=== PATIENT | female | born 1930 | race Caucasian/White ===

== ENCOUNTER 2017-04-06 09:45 | Inpatient (IN) | payer MEDICARE, OTHER ==
[~2017-04-06] VITALS: Ht 157.5 cm; Wt 42.2 kg
[2017-04-06] VITALS (7 sets, daily range): BP systolic 127–137; BP diastolic 64–92; PULSE 69–75; RESP 16–20; TEMP 98.5; Ht 157.5 cm; Wt 42.2 kg
[~2017-04-06 09:45] MED LIST: ALPR0.5T6 PO; AMLO2.5T2 PO; ASPI-664 PO; ATOR20TA38 PO; CHOL2000 PO; CLOP75TA27 PO; DOCU-144 PO; ESOM40CA PO; FAMO-96 PO; GABA100C14 PO; IBUP400T22 PO; LINA290C PO; METO5TAB58 PO; MIRT30TA5 PO; POLY17PO3 PO; TRAM-40 PO; TRAM50TA2 PO
--- NOTE | 2017-04-06 10:41 | RADRPT ---
PROCEDURE: XR Chest. CLINICAL INDICATION: Chest pain TECHNIQUE: Frontal chest x-ray was obtained. COMPARISON: Chest x-ray November 05, 2014 FINDINGS: Heart is not enlarged. Mediastinum is not widened. No hilar masses seen. Lungs are clear of any infi ltrates. There is no effusion or pneumothorax. IMPRESSION: No evidence for active cardiopulmonary disease. .August Maldonado MD, MD Date Time Electronically viewed and signed by .August Maldonado MD, on 04/06/2017 10:41 .A/
[2017-04-06 10:45] LABS: BASOPHILS % 0.7 % (0.0-2.0); EOSINOPHILS # 0.2 10^3/ul (0.0-0.5); EOSINOPHILS % 2.4 % (0.0-7.0); HEMATOCRIT 39.8 % (37.0-47.0); HEMOGLOBIN 13.5 g/dl (12.0-16.0); LYMPHOCYTES # 1.1 10^3/ul (0.8-2.9); MEAN CORPUSCULAR HEMOGLOBIN 32.2 pg (29.0-33.0); MEAN CORPUSCULAR HGB CONC 33.9 g/dl (32.0-37.0); MEAN PLATELET VOLUME 10.2 fl (7.4-10.4); MONOCYTE # 0.4 10^3/ul (0.3-0.9); MONOCYTES % 6.5 % (0.0-11.0); NEUTROPHIL # 4.4 10^3/ul (1.6-7.5); NEUTROPHILS % 72.1 % (39.0-77.0); PLATELET COUNT 221 10^3/UL (140-415); RED BLOOD COUNT 4.19 10^6/ul (4.20-5.40); RED CELL DISTRIBUTION WIDTH 13.2 % (11.5-14.5); WHITE BLOOD COUNT 6.2 10^3/ul (4.8-10.8)
[2017-04-06 10:53] LABS: PROTIME 13.2 Sec (12.2-14.2)
[2017-04-06 10:54] LABS: PARTIAL THROMBOPLASTIN TIME 29.8 Sec (25.0-35.0)
[2017-04-06 10:55] LABS: ANION GAP 13 (8-16); BLOOD UREA NITROGEN 10 mg/dl (7-20); CALCIUM 9.9 mg/dl (8.4-10.2); CARBON DIOXIDE 29 mmol/L (21-31); CHLORIDE 99 mmol/L (97-110); CREATININE 0.64 mg/dl (0.44-1.00); GLUCOSE 109 mg/dl (70-220); POTASSIUM 4.5 mmol/L (3.5-5.1); SODIUM 136 mmol/L (135-144)
[2017-04-06 11:08] LABS: TROPONIN-I < 0.012 ng/ml (0.00-0.12)
[2017-04-06 11:34] LABS: ADD UMIC NO; UR ASCORBIC ACID NEGATIVE (NEGATIVE); UR BILIRUBIN (Dip) NEGATIVE (NEGATIVE); UR BLOOD (Dip) NEGATIVE (NEGATIVE); UR CLARITY CLEAR (CLEAR); UR COLOR STRAW (YELLOW); UR GLUCOSE (Dip) NEGATIVE (NEGATIVE); UR KETONES (Dip) NEGATIVE (NEGATIVE); UR LEUKOCYTE ESTERASE (Dip) NEGATIVE Leu/ul (NEGATIVE); UR NITRITE (Dip) NEGATIVE (NEGATIVE); UR SPECIFIC GRAVITY (Dip) 1.003 (1.003-1.030); UR TOTAL PROTEIN (Dip) NEGATIVE (NEGATIVE); UR UROBILINOGEN (Dip) NEGATIVE (NEGATIVE)
[2017-04-06 11:43] LABS: BENZODIAZEPINES Negative (NEGATIVE)
--- NOTE | 2017-04-06 11:43 | RADRPT ---
PROCEDURE: CT Brain without contrast. CLINICAL INDICATION: Stroke TECHNIQUE: A CT of the brain was performed on a multidetector CT scanner utilizing axial imaging f rom the skull base through the vertex without IV contrast. Multiplanar reformatted images were made . Images were reviewed on a PACS workstation. The CTDIvol is 45 mGy and the DLP is 630 mGycm. One or more of the following dose reduction techniques were utilized: 1.) Automated exposure control 2.) Adjustment of the mA +/- kV according to patient's size 3.) Use of iterative reconstruction technique. COMPARISON: Head CT November 05, 2014 FINDINGS: There is moderate age appropriate diffuse cerebral volume loss with sulcal and ventricular dilatatio n. No discrete extra-axial fluid collection or masses present. The ventricles are in the midline and of normal contour and configuration. Noted is an old left basal ganglia infarct which extends into the subependymal white matter of the left frontal lobe. There is periventricular white matter diseas e in both cerebral hemispheres. No associated mass effect is present. There is preservation of tarun l duarte-white discrimination. No intracranial hemorrhage is seen. There is normal aeration of the visualized paranasal sinuses. IMPRESSION: Age-appropriate atrophy. 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 No intracranial hemorrhage or mass. .August Maldonado MD, MD Date Time Electronically viewed and signed by .August Maldonado MD, on 04/06/2017 11:43 .A/
[2017-04-06 12:03] LABS: BARBITURATES Negative (NEGATIVE); CANNABINOIDS Negative (NEGATIVE); COCAINE Negative (NEGATIVE); OPIATES Negative (NEGATIVE)
[2017-04-06] MEDS ORDERED: ACETAMINOPHEN 325 MG TAB PO PRN (12:30)
[2017-04-06] MEDS ORDERED: ONDANSETRON 4 MG INJ IV PRN (12:30)
[2017-04-06] MEDS ORDERED: ASPIRIN 325 MG TAB PO ONE (12:30)
--- NOTE | 2017-04-06 12:31 | ERD ---
ER Documentation Chief Complaint Chief Complaint Complains of left sided weakness and chest pain HPI Patient is an 86-year-old female with hypertension and previous stroke who presents with 2 days of left-sided arm weakness. The family and the patient are worried about another stroke. 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 She also is having chest pain today which is in the midsternal area and does not radiate. She feels weak. She has had no fevers. Upon review of old medical records this is the patient's fourth visit to the ER since 2014. ROS All systems reviewed and are negative except as per history of present illness. Medications Home Meds Active Scripts Docusate Sodium* (Colace*) 100 Mg Cap, 100 MG PO Q12H for 30 Days Prov:UQINCY STEWARD 11/09/14 Clopidogrel Bisulfate (Clopidogrel) 75 Mg Tab, 75 MG PO DAILY for 30 Days Prov:QUINCY STEWARD 11/09/14 Reported Medications Cholecalciferol* (Vitamin D3*) 2,000 Unit Cap, 2000 UNIT PO DAILY, CAP 10/25/15 Alprazolam* (Alprazolam*) 0.5 Mg Tablet, 0.5 MG PO DAILY Y for ANXIETY, TAB 10/25/15 Linaclotide (LINZESS) 290 Mcg Capsule, 290 MCG PO DAILY, #30 CAP 10/25/15 Aspirin* (Aspirin* EC) 81 Mg Tablet.dr, 81 MG PO DAILY, TAB 10/25/15 Tramadol Hcl* (Ultram*) 50 Mg Tablet, 50 MG PO DAILY Y for PAIN, TAB 10/25/15 Metoclopramide* (Reglan*) 5 Mg Tablet, 5 MG PO AC MEALS, TAB 10/25/15 Atorvastatin Calcium* (Atorvastatin Calcium*) 20 Mg Tablet, 20 MG PO QHS, #30 TAB 10/25/15 Famotidine* (Pepcid*) 20 Mg Tablet, 20 MG PO DAILY, TAB 11/10/14 Discontinued Reported Medications Polyethylene Glycol* (Polyethylene Glycol*) 17 Gm Powd.pack, 17 GM PO DAILY, # 30 PACKET 10/25/15 Esomeprazole Mag Trihydrate (Nexium) 40 Mg Capsule.dr, 40 MG PO DAILY, #30 CAP 10/25/15 Gabapentin* (Gabapentin*) 100 Mg Capsule, 100 MG PO DAILY, #90 CAP 10/25/15 Mirtazapine* (Mirtazapine*) 30 Mg Tablet, 30 MG PO DAILY, TAB 10/25/15 Ibuprofen* (Ibuprofen*) 400 Mg Tablet, 400 MG PO Q6H Y for PAIN, TAB 11/10/14 Discontinued Scripts Tramadol HCl (Tramadol HCl) 50 Mg Tablet, 50 MG PO Q6 Y for PAIN, #15 TAB Prov:CHANTELLE CONRAD MD 10/25/15 Amlodipine Besylate* (Norvasc*) 2.5 Mg Tab, 2.5 MG PO DAILY for 30 Days Prov:QUINCY STEWARD 11/09/14 Allergies Allergies: Coded Allergies: No Known Allergy (Unverified , 04/06/17) PMhx/Soc History of Surgery: Yes (hysterectomy ) Anesthesia Reaction: No Hx Neurological Disorder: Yes (CVA) Hx Respiratory Disorders: No Hx Cardiac Disorders: Yes (HTN) Hx Psychiatric Problems: No Hx Miscellaneous Medical Probl: Yes (gerd, anxiety ) Hx Alcohol Use: No Hx Substance Use: No Hx Tobacco Use: No Smoking Status: Never smoker FmHx Family History: No diabetes Physical Exam Vitals Vital Signs Date Time Temp Pulse Resp B/P Pulse Ox O2 Delivery O2 Flow Rate FiO2 04/06/17 10:23 64 22 120/88 100 Room Air 04/06/17 09:50 98.5 72 20 120/66 98 Physical Exam Const: No acute distress Head: Atraumatic Eyes: Normal Conjunctiva ENT: Normal External Ears, Nose and Mouth. Neck: Full range of motion..~ No meningismus. Resp: Clear to auscultation bilaterally Cardio: Regular rate and rhythm, no murmurs Abd: Soft, non tender, non distended. Normal bowel sounds Skin: No petechiae or rashes Back: No midline or flank tenderness Ext: No cyanosis, or edema Neur: Awake and alert, right-sided flaccid paralysis from previous stroke, left-sided track helper strength weakness on the left upper extremity, cranial nerves II through XII are intact without facial droop, no slurred speech Psych: Normal Mood and Affect Result Diagram: 04/06/17 1009 04/06/17 1009 Results 24 hrs Laboratory Tests Test 04/06/17 10:09 04/06/17 11:12 White Blood Count 6.210^3/ul Red Blood Count 4.1910^6/ul Hemoglobin 13.5g/dl Hematocrit 39.8% Mean Corpuscular Volume 95.0fl Mean Corpuscular Hemoglobin 32.2pg Mean Corpuscular Hemoglobin Concent 33.9g/dl Red Cell Distribution Width 13.2% Platelet Count 23633^3/UL Mean Platelet Volume 10.2fl Neutrophils % 72.1% Lymphocytes % 18.0% Monocytes % 6.5% Eosinophils % 2.4% Basophils % 0.7% Nucleated Red Blood Cells % 0.0/100WBC Neutrophils # 4.410^3/ul Lymphocytes # 1.110^3/ul Monocytes # 0.410^3/ul Eosinophils # 0.210^3/ul Basophils # 0.010^3/ul Nucleated Red Blood Cells # 0.010^3/ul Prothrombin Time 13.2Sec Prothrombin Time Ratio 1.0 INR International Normalized Ratio 1.00 Activated Partial Thromboplast Time 29.8Sec Sodium Level 136mmol/L Potassium Level 4.5mmol/L Chloride Level 99mmol/L Carbon Dioxide Level 29mmol/L Anion Gap 13 Blood Urea Nitrogen 10mg/dl Creatinine 0.64mg/dl Glucose Level 109mg/dl Hemoglobin A1c 5.3% Calcium Level 9.9mg/dl Troponin I < 0.012ng/ml Urine Color STRAW Urine Clarity CLEAR Urine pH 6.0 Urine Specific [place] 1.003 Urine Ketones NEGATIVEmg/dL Urine Nitrite NEGATIVEmg/dL Urine Bilirubin NEGATIVEmg/dL Urine Urobilinogen NEGATIVEmg/dL Urine Leukocyte Esterase NEGATIVELeu/ul Urine Hemoglobin NEGATIVEmg/dL Urine Glucose NEGATIVEmg/dL Urine Total Protein NEGATIVEmg/dl Urine Opiates Screen Negative Urine Barbiturates Negative Urine Amphetamines Screen Negative Urine Benzodiazepines Screen Negative Urine Cocaine Screen Negative Urine Cannabinoids Negative Current Medications Medications (Trade) Dose Ordered Sig/Jose Manuel Route PRN Reason Start Time Stop Time Status Last Admin Dose Admin Ondansetron HCl (Zofran Inj) 4 mg ER BRIDGE PRN IV NAUSEA AND/OR VOMITING 04/06/17 12:30 04/07/17 12:29 Acetaminophen (Tylenol Tab) 650 mg ER BRIDGE PRN PO MILD PAIN/FEVER 04/06/17 12:30 04/07/17 12:29 Aspirin (Aspirin) 325 mg ONCE ONCE PO 04/06/17 12:30 04/06/17 12:31 DC Procedures/MDM EKG read by me: Rate/Rhythm: Regular rate and rhythm at a rate of 77 Intervals: Normal Impression: No evidence of ischemia or arrhythmia CT brain negative for bleed per radiology. Chest x-ray negative per radiology. Patient is an 86-year-old female with previous stroke who presents with left arm weakness. I believe this may be another stroke and I want to admit her to the hospital to a telemetry bed. I believe inpatient admission is appropriate given acute stroke. The patient will be given aspirin after she passed a bedside swallow evaluation. She had an NIH stroke scale performed by nursing. The patient is not a candidate for TPA as her symptoms started 2 days ago. She will be admitted to the panel team. Departure Diagnosis: Primary Impression: Stroke CVA mechanism: unspecified Qualified Code: I63.9 - Cerebrovascular accident (CVA), unspecified mechanism Additional Impression: Chest pain Chest pain type: unspecified Qualified Code: R07.9 - Chest pain, unspecified type Condition: RYAN Benson MD Apr 06, 2017 12:31
[2017-04-06] MEDS ORDERED: ALPRAZOLAM 0.5 MG TAB PO PRN (17:00)
[2017-04-06] MEDS ORDERED: NACL 0.9% 3 ML SYG IV SCH (17:00)
[2017-04-06 17:03] LABS: CREATINE KINASE 59 IU/L (23-200)
--- NOTE | 2017-04-06 17:04 | HP ---
Date/Time of Note Date/Time of Note DATE: 04/06/17 TIME: 17:04 Assessment/Plan VTE Prophylaxis VTE Prophylaxis Intervention: SCD's Lines/Catheters IV Catheter Type (from Nrsg): Saline Lock Assessment/Plan Assessment/Plan 86 yo F with pmhx L basal infarct with residual R sided deficits presents following an episode earlier today of bl forearm tingling. suspect spinal stenosis v anxiety v other. ER concerned about TIA/CVA though hx given to ER different that that which I obtained PLAN MRI brain, CSpine MRA brain, neck cont home meds PT/OT/speech carb controlled diet a1c, lipids tele DVT prophx HPI/ROS Admit Date/Time Admit Date/Time Apr 06, 2017 at 12:17 Hx of Present Illness of note, pt's family served as foreign language professor for this encounter CC: episodes of bl LE tingling earlier today HPI 86 yo F with pmhx L sided CVA with residual R side deficits, HTN, HL admitted following an episode of bl arm tingling earlier this AM. Pt states some time after she awoke this AM, ~9am, she had a 1 minute episode of tingling in both of her forearms. She was scared this was a stroke so she came to the ER. Pt thinks she might have had some LUE weakness during this episode but is not sure. No SOB, does not freely report chest pain. At time of my clinical encounter, pt's main concern was that the exam room in the ER was too cold. PMH/Family/Social Social History lives with her family in the community Smoking Status: Never smoker Exam/Review of Systems Vital Signs Vitals Vital Signs Date Time Temp Pulse Resp B/P Pulse Ox O2 Delivery O2 Flow Rate FiO2 04/06/17 16:09 97.8 66 16 127/92 97 04/06/17 13:54 Room Air Exam Exam CN 2-12 intact bl EOMI MMM no mrg lungs clear abd soft no rashes 4/5 strength in RUE, 3/5 in RLE-->baseline x 2 years per family 5/5 strength LUE and LLE NCCT head unremarkable labs reviewed Labs Result Diagram: 04/06/17 1009 04/06/17 1009 Medications Medications Current Medications Enoxaparin Sodium (Lovenox) 40 mg DAILY SC ; Start 11/19/17 at 09:00; Status UNV Alprazolam (Xanax) 0.5 mg DAILY PRN PO ANXIETY; Start 04/06/17 at 17:00; Status UNV Aspirin (Halfprin) 81 mg DAILY PO ; Start 04/07/17 at 09:00; Status UNV Atorvastatin Calcium (Lipitor) 20 mg QHS PO ; Start 04/06/17 at 21:00; Status UNV Cholecalciferol (Vitamin D) 2,000 unit DAILY PO ; Start 04/07/17 at 09:00; Status UNV Docusate Sodium (Colace) 100 mg Q12H PO ; Start 04/06/17 at 17:00; Status UNV Famotidine (Pepcid) 20 mg DAILY PO ; Start 04/07/17 at 09:00; Status UNV Tramadol HCl (Ultram) 50 mg DAILY PRN PO PAIN; Start 04/06/17 at 17:00; Status UNV Miscellaneous Information 290 mcg DAILY PO ; Start 04/07/17 at 09:00; Status UNV JASON CA MD Apr 06, 2017 17:04
[2017-04-06 17:09] LABS: CK-MB 1.23 ng/ml (0.0-2.4)
[2017-04-06 17:35] LABS: TROPONIN-I < 0.012 ng/ml (0.00-0.12)
[2017-04-06] MEDS: [UNRECOGNIZED DRUG - OTHER] XX SCH (18:00)
[2017-04-06] MEDS: DOCUSATE SODIUM 100 MG CAP PO SCH (18:33)
[2017-04-06] MEDS: METOCLOPRAMIDE 5 MG TAB PO SCH (18:34)
[2017-04-06 18:41] LABS: CHOL/HDL RATIO 2.1 RATIO
[2017-04-06] MEDS: ATORVASTATIN 20 MG TAB PO SCH (21:25)
[2017-04-06] MEDS: traMADol 50 MG TAB PO PRN (21:33)
[2017-04-06 22:23] LABS: CREATINE KINASE 67 IU/L (23-200)
[2017-04-06 22:36] LABS: CK-MB 1.52 ng/ml (0.0-2.4)
[2017-04-06 22:51] LABS: TROPONIN-I < 0.012 ng/ml (0.00-0.12)
[2017-04-07] VITALS (11 sets, daily range): BP systolic 105–159; BP diastolic 57–92; PULSE 70–104; RESP 16–22
[2017-04-07] MEDS ORDERED: ALPRAZOLAM 0.25 MG TAB PO PRN (00:37)
[2017-04-07] MEDS: [UNRECOGNIZED DRUG - OTHER] XX SCH ×3 (02:00→18:00)
[2017-04-07] MEDS: DOCUSATE SODIUM 100 MG CAP PO SCH ×2 (06:30→18:11)
[2017-04-07] MEDS: FAMOTIDINE 20 MG TAB PO SCH (08:44)
[2017-04-07] MEDS: ASPIRIN (EC) 81 MG TAB PO SCH (08:44)
[2017-04-07] MEDS: METOCLOPRAMIDE 5 MG TAB PO SCH ×3 (08:44→18:11)
[2017-04-07] MEDS: CHOLECALCIFEROL 2,000 UNIT CAP PO SCH (08:44)
[2017-04-07] MEDS: ENOXAPARIN 30 MG/0.3 ML SYG SC SCH (08:46)
[2017-04-07] MEDS ORDERED: NON-FORMULARY/PATIENT OWN MED (Linaclotide (Linzess) 290 MCG) PO SCH (09:00)
[2017-04-07] MEDS ORDERED: ONDANSETRON 4 MG TAB PO PRN (12:00)
[2017-04-07] MEDS ORDERED: ONDANSETRON 4 MG INJ IV PRN (12:00)
[2017-04-07] MEDS: traMADol 50 MG TAB PO PRN (14:38)
--- NOTE | 2017-04-07 16:00 | PN ---
Date/Time of Note Date/Time of Note DATE: 04/07/17 TIME: 15:58 Assessment/Plan VTE Prophylaxis VTE Prophylaxis Intervention: SCD's Lines/Catheters IV Catheter Type (from Nrs): Saline Lock Urinary Cath still in place: No Assessment/Plan Assessment/Plan Assessment/Plan 86 yo F with pmhx L basal infarct with residual R sided deficits presents following an episode 11.18 of bl forearm tingling. suspect spinal stenosis v anxiety v other. ER concerned about TIA/CVA though hx given to ER different that that which I obtained PLAN MRI brain, CSpine MRA brain, neck TTE done report pending cont home meds PT/OT/speech ongoing carb controlled diet LDL 67, a1c 5.3 tele DVT prophx cont home anxiety meds Subjective 24 Hr Interval Summary Free Text/Dictation Pt very anxious this afternoon Exam/Review of Systems Vital Signs Vitals Vital Signs Date Time Temp Pulse Resp B/P Pulse Ox O2 Delivery O2 Flow Rate FiO2 04/07/17 12:21 97.2 93 22 159/92 97 04/07/17 00:26 Room Air Intake and Output 04/06/17 04/06/17 04/07/17 14:59 22:59 06:59 Intake Total 100 ml 300 ml Output Total 160 ml Balance -60 ml 300 ml Exam nad no mrg CN2-12 intact bl 5/5 strength LUE abd soft no rashes Results Result Diagram: 04/06/17 1009 04/06/17 1009 Results 24 hrs Laboratory Tests Test 04/06/17 16:06 04/06/17 22:01 Creatine Kinase 59 67 Creatine Kinase Index 2.1 2.3 Creatinine Kinase MB (Mass) 1.23 1.52 Troponin I < 0.012 < 0.012 Triglycerides Level 57 Cholesterol Level 144 LDL Cholesterol, Calculated 67 HDL Cholesterol 66 Cholesterol/HDL Ratio 2.1 Medications Medications Current Medications Enoxaparin Sodium (Lovenox) 30 mg DAILY SC Last administered on 04/07/17 08: 46; Admin Dose 30 MG; Start 04/07/17 at 09:00 Aspirin (Halfprin) 81 mg DAILY PO Last administered on 04/07/17 08:44; Admin Dose 81 MG; Start 04/07/17 at 09:00 Atorvastatin Calcium (Lipitor) 20 mg QHS PO Last administered on 04/06/17 21: 25; Admin Dose 20 MG; Start 04/06/17 at 21:00 Cholecalciferol (Vitamin D) 2,000 unit DAILY PO Last administered on 08:44; Admin Dose 2,000 UNIT; Start 04/07/17 at 09:00 Docusate Sodium (Colace) 100 mg Q12H PO Last administered on 04/07/17 06:30; Admin Dose 100 MG; Start 04/06/17 at 17:00 Famotidine (Pepcid) 20 mg DAILY PO Last administered on 04/07/17 08:44; Admin Dose 20 MG; Start 04/07/17 at 09:00 Tramadol HCl (Ultram) 50 mg DAILY PRN PO PAIN Last administered on 04/07/17 14:38; Admin Dose 50 MG; Start 04/06/17 at 17:00 Miscellaneous Information 290 mcg DAILY PO ; Start 04/07/17 at 09:00; Status UNV Miscellaneous Information (*Order Clarification Bulletin) Linaclotide (Linzess) 290 MCG): PLE... Q8H XX ; Start 04/06/17 at 18:00 Ondansetron HCl (Zofran Inj) 4 mg Q6H PRN IV NAUSEA AND/OR VOMITING Last administered on 04/07/17 12:04; Admin Dose 4 MG; Start 04/07/17 at 12:00 Ondansetron HCl (Zofran Tab) 4 mg Q6H PRN PO NAUSEA AND/OR VOMITING; Start at 12:00 Alprazolam (Xanax) 0.5 mg QHS PO ; Start 04/07/17 at 21:00 JASON CA MD Apr 07, 2017 16:00
[2017-04-07] MEDS: ATORVASTATIN 20 MG TAB PO SCH (20:57)
[2017-04-07] MEDS ORDERED: ALPRAZOLAM 0.25 MG TAB PO SCH (21:00)
[2017-04-08 00:11] VITALS: PULSE 64
--- NOTE | 2017-04-08 02:06 | RADRPT ---
PROCEDURE: MR Brain without contrast. CLINICAL INDICATION: Altered mental status and suspected stroke TECHNIQUE: Sagittal and axial T1 weighted, axial T2 weighted, coronal GRE, axial diffusion weighte d with ADC mapping, and axial FLAIR imaging without contrast. COMPARISON: 04/06/2017 CT and MRI from 11/06/2014 FINDINGS: No diffusion weighted abnormalities are seen to suggest the presence of acute ischemia or recent inf arct. . There is no evidence of intracranial hemorrhage, mass effect, or midline shift. No extra-ax ial fluid collections are seen. Again seen is central and cortical atrophy with moderate abnormal in creased FLAIR / T2 signal in the periventricular white matter most consistent with chronic microvasc ular ischemic change. Old infarct of the left basal ganglia and perla radiata is again seen. Minima l associated hemosiderin. Gradient images otherwise show no evidence for acute or chronic hemorrhage . Wallerian degeneration of the left abby and midbrain. The right vertebral artery is dominant. Anthony sly patent intracranial flow voids. . The visualized paranasal sinuses and mastoids are grossly ralf r. IMPRESSION: Atrophy and chronic microvascular ischemic changes with old infarct of the left perla radiata and b marino ganglia. No definite acute intracranial abnormality. RPTAT: [facility] Physician Sarah Date Time Electronically viewed and signed by Physician Sarah on 04/08/2017 02:06 SARATH/
--- NOTE | 2017-04-08 02:11 | RADRPT ---
PROCEDURE: MRA Brain. CLINICAL INDICATION: Altered mental status and suspected stroke TECHNIQUE: 3-D [id number] MR angiography of the intracranial vasculature was performed without contrast. Multiplanar reformatted and 3-D maximum intensity projection reconstructed images were t hen performed. COMPARISON: None FINDINGS: The internal carotid arteries are patent and normal in caliber. The middle cerebral and the anterio r cerebral arteries are also patent and normal in caliber with no significant luminal irregularity o r narrowing identified. The vertebral arteries, basilar artery, and superior cerebellar arteries ar e visualized and normal in appearance. The right vertebral artery is dominant. The posterior cere bral arteries are patent and normal in appearance bilaterally. No aneurysms are detected. Note frankie uld be made that small, less than 3 mm, or thrombosed aneurysms may not be well seen with this techn ique. IMPRESSION: Normal MRA of the brain. RPTAT: [facility] Physician Sarah Date Time Electronically viewed and signed by Mary Cuellar Physician on 04/08/2017 02:10 SARATH/
[2017-04-08 04:03] VITALS: PULSE 61
[2017-04-08 04:05] VITALS: BP 127/71; RESP 20
--- NOTE | 2017-04-08 04:59 | RADRPT ---
PROCEDURE: MRA Neck without contrast. CLINICAL INDICATION: Altered mental status and suspected stroke. TECHNIQUE: MRA of the major cervical arteries was performed utilizing axial 2D time of flight and localized 3-D [id number] to the carotid bifurcations. No IV contrast was given as ordered. 3-D maximum intensity projection reconstructions. NASCET criteria were used to measure stenoses where i ndicated. COMPARISON: No prior studies are available for comparison. FINDINGS: The study is extremely limited by patient motion. Gross flow is seen in the proximal carotid and emilio tebral arteries but motion artifact severely limits evaluation of the mid to distal portions of the vessels. The right vertebral artery is dominant. The left vertebral artery is not seen beyond the pr oximal portion. IMPRESSION: Markedly limited study due to patient motion. Repeat study when the patient is able to have this don e is suggested. Carotid ultrasound may also be most helpful for evaluation of the carotid arteries i n this patient. RPTAT: [facility] Physician Sarah Date Time Electronically viewed and signed by Physician Sarah on 04/08/2017 04:59 SARATH/
--- NOTE | 2017-04-08 05:30 | RADRPT ---
PROCEDURE: MR Cervical Spine noncontrast. CLINICAL INDICATION: Bilateral upper extremity tingling. TECHNIQUE: Multiplanar multisequence noncontrast MRI of the cervical spine was performed. COMPARISON: There are no similar studies submitted for comparison. FINDINGS: There is a normal cervical lordosis. The vertebral body heights are maintained. There is no destructive osseous lesion. There is no abnormal bone marrow edema. There is disk desiccation from C2-C3 to C6-C7. The spinal cord is normal in caliber. The spinal cord is normal in signal. C2-C3 : There is a 1 mm circumferential disc osteophyte complex without spinal canal stenosis. There is mild bilateral facet arthropathy and bilateral uncovertebral hypertrophy causing mild to moderat e left without right foraminal stenosis. C3-C4 : There is 1 mm circumferential disc osteophyte complex without spinal canal stenosis. There i s moderate left and moderate facet arthropathy and bilateral uncovertebral hypertrophy causing moder ate to severe left without right foraminal stenosis. This affects the exiting left C4 nerve root. C4-C5 : There is a 1 mm circumferential disc osteophyte complex without spinal canal stenosis. There is severe left and moderate facet arthropathy and bilateral uncovertebral hypertrophy with mild laurent ateral foraminal stenosis. C5-C6 : There is mild to moderate disc space narrowing. There is a 2 mm circumferential disc osteoph yte complex mildly indenting the spinal cord with mild to moderate spinal canal stenosis. There is m oderate bilateral facet arthropathy and bilateral uncovertebral hypertrophy causing mild to moderate left with mild right foraminal stenosis. C6-C7 : There is moderate to space narrowing. There is 2 mm circumferential disc osteophyte complex with dorsal ligamentous hypertrophy mildly indenting the spinal cord with mild to moderate spinal ca nal stenosis. There is moderate by facet arthropathy and bilateral uncovertebral hypertrophy causing mild to moderate left without right foraminal stenosis. C7-T1 : There is trace anterolisthesis with a broad-based pseudo disc bulge without spinal canal hadley nosis. There is moderate left and moderate facet arthropathy and bilateral uncovertebral hypertrophy causing mild left without right foraminal stenosis. The paravertebral musculature are within normal limits. IMPRESSION: 1. 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 This affects the exiting left C4 ne rve root. 2. No abnormal bone marrow edema. Further findings as detailed above. RPTAT: HVF .Parth June MD, MD Date Time Electronically viewed and signed by .Parth June MD, MD on 04/08/2017 05:30 .F/
[2017-04-08] MEDS: DOCUSATE SODIUM 100 MG CAP PO SCH (07:11)
[2017-04-08 08:00] VITALS: BP 121/58; PULSE 69; RESP 18
[2017-04-08] MEDS: [UNRECOGNIZED DRUG - OTHER] XX SCH ×2 (08:27→14:30)
[2017-04-08] MEDS: FAMOTIDINE 20 MG TAB PO SCH (08:55)
[2017-04-08] MEDS: ASPIRIN (EC) 81 MG TAB PO SCH (08:55)
[2017-04-08] MEDS: METOCLOPRAMIDE 5 MG TAB PO SCH ×2 (08:55→12:01)
[2017-04-08] MEDS: CHOLECALCIFEROL 2,000 UNIT CAP PO SCH (08:55)
[2017-04-08] MEDS: ENOXAPARIN 30 MG/0.3 ML SYG SC SCH (08:57)
[2017-04-08 11:59] VITALS: BP 118/72; RESP 20
[2017-04-08 12:00] VITALS: PULSE 74
--- NOTE | 2017-04-08 12:21 | PDOCDIS ---
Discharge Instructions DIAGNOSIS Discharge Diagnosis Cervical stenosis versus TIA CONDITION Patient Condition: Good HOME CARE INSTRUCTIONS: Special Diet: 1800 ADA ACTIVITY: Activity Restrictions: Slowly Increase Activity Do not Drive FOLLOW UP/APPOINTMENTS Follow-up Plan Primary 1 week Appointment/referral neurosurgery 1-2 weeks SOM ECHEVARRIA MD Apr 08, 2017 12:21
--- NOTE | 2017-04-08 12:21 | DS ---
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 Pt states some time after she awoke this AM, ~9am, she had a 1 minute episode of tingling in both of her forearms. She was scared this was a stroke so she came to the ER. Pt thinks she might have had some LUE weakness during this episode but is not sure. No SOB, does not freely report chest pain. At time of my clinical encounter, pt's main concern was that the exam room in the ER was too cold. Hospital Course 86 year female admitted with lateral upper extremity paresthesias. No loss of speech or vision or falls. He uses a brace to walk from probably her old stroke. Ruled out for stroke by CT MRI. MRI shows old stroke. Recently stable and fit for discharge. May continue aspirin/risk factor modification. Consider Plavix. Needs advanced care planning evaluated due to repeat risk of stroke in her future. Possibly underlying mild cognitive impairment as well. Probable cervical stenosis. Outpatient referral to neurosurgery for an opinion placed. Home Meds Active Scripts Docusate Sodium* (Colace*) 100 Mg Cap, 100 MG PO Q12H for 30 Days Prov:QUINCY STEWARD 11/09/14 Clopidogrel Bisulfate (Clopidogrel) 75 Mg Tab, 75 MG PO DAILY for 30 Days Prov:QUINCY STEWARD 11/09/14 Reported Medications Cholecalciferol* (Vitamin D3*) 2,000 Unit Cap, 2000 UNIT PO DAILY, CAP 10/25/15 Alprazolam* (Alprazolam*) 0.5 Mg Tablet, 0.5 MG PO DAILY Y for ANXIETY, TAB 10/25/15 Linaclotide (LINZESS) 290 Mcg Capsule, 290 MCG PO DAILY, #30 CAP 10/25/15 Aspirin* (Aspirin* EC) 81 Mg Tablet.dr, 81 MG PO DAILY, TAB 6/7/16 Tramadol Hcl* (Ultram*) 50 Mg Tablet, 50 MG PO DAILY Y for PAIN, TAB 10/25/15 Metoclopramide* (Reglan*) 5 Mg Tablet, 5 MG PO AC MEALS, TAB 10/25/15 Atorvastatin Calcium* (Atorvastatin Calcium*) 20 Mg Tablet, 20 MG PO QHS, #30 TAB 10/25/15 Famotidine* (Pepcid*) 20 Mg Tablet, 20 MG PO DAILY, TAB 11/10/14 Discontinued Reported Medications Polyethylene Glycol* (Polyethylene Glycol*) 17 Gm Powd.pack, 17 GM PO DAILY, # 30 PACKET 10/25/15 Esomeprazole Mag Trihydrate (Nexium) 40 Mg Capsule.dr, 40 MG PO DAILY, #30 CAP 10/25/15 Gabapentin* (Gabapentin*) 100 Mg Capsule, 100 MG PO DAILY, #90 CAP 10/25/15 Mirtazapine* (Mirtazapine*) 30 Mg Tablet, 30 MG PO DAILY, TAB 10/25/15 Ibuprofen* (Ibuprofen*) 400 Mg Tablet, 400 MG PO Q6H Y for PAIN, TAB 11/10/14 Discontinued Scripts Tramadol HCl (Tramadol HCl) 50 Mg Tablet, 50 MG PO Q6 Y for PAIN, #15 TAB Prov:CHANTELLE CONRAD MD 10/25/15 Amlodipine Besylate* (Norvasc*) 2.5 Mg Tab, 2.5 MG PO DAILY for 30 Days Prov:QUINCY STEWARD 11/09/14 Follow-up Plan Primary 1 week Appointment/referral neurosurgery 1-2 weeks Primary Care Provider Serena Yeager Time spent on discharge: > 30 minutes SOM ECHEVARRIA MD Apr 08, 2017 12:21
--- NOTE | 2017-04-08 13:16 | RADRPT ---
Echocardiogram Report Patient Name: HANNA DINH Gender: Female Date: 1930 Study Date: 07-Apr-2017 Siding Coreboard Inspector: HERBIE Location: [id number] Ref. Physician: JASON CA Quality: Good Procedures: Transthoracic echocardiogram with complete 2D, M-Mode, and doppler examination. Indications: Chest Pain. 2D/M Mode Doppler Measurement Value Normal Ranges Measurement Value Normal Ranges AoR Diam MM 2.9 cm DAIN Vmax 2.4 cm2 ACS MM 1.8 cm DAIN VTI 2.4 cm2 LA/Ao MM 1.1 AV Mean Vincent 0.7 m/sec LA Dimen MM 3.1 cm AV Mean PG 2.4 mmHg LVIDd 2D 4.0 3.5 - 5.6 cm AV Peak Vincent 1.0 m/sec LVIDs 2D 2.6 2.1 - 4.1 cm AV Peak PG 3.6 mmHg LVPWd 2D 1.0 0.6 - 1.1 cm AV VTI 22.3 cm IVSd 2D 1.1 0.6 - 1.1 cm AI Peak PG 39.9 mmHg EDV 2D 70.4 cm3 AI Peak Vincent 3.2 m/sec ESV 2D 17.9 cm3 AI PHT 337.1 msec EF 2D 60.0 50.0 - 65.0 % LVOT Peak Vincent 0.9 m/sec LVOT Diam 1.8 cm LVOT Peak PG 3.1 mmHg MV E Peak Vincent 0.5 m/sec MV A Peak Vincent 0.8 m/sec MV E/A 0.6 MV Decel Time 231 msec MV Decel [place] 2 MV E/A 0.6 TR Peak Vincent 2.6 m/sec TR Peak PG 27.4 mmHg RVSP 30.0 mmHg RA Pressure 3.0 Findings Left Ventricle: Normal left ventricular systolic function. Normal left ventricular cavity size. Normal left ventricular wall thickness. Ejection fraction is visually estimated at 65 %. Tissue Doppler/Mitral Doppler indices are consistent with impaired relaxation (Stage I diastolic dysfunction). Right Ventricle: Normal right ventricular size. Normal right ventricular systolic function. Left Atrium: There is mild enlargement of left atrium. Right Atrium: The right atrium is normal in size. Mitral Valve: Normal appearance of the mitral valve. Mild mitral annular calcification. Trace mitral regurgitation. Aortic Valve: Normal appearance of the aortic valve. No hemodynamically significant aortic stenosis by doppler. Mild aortic valve regurgitation. Tricuspid Valve: Normal appearance of the tricuspid valve. Normal right ventricular systolic pressure. Estimated peak PA systolic pressure 30 mmHg. There is trace to mild tricuspid regurgitation. Pulmonic Valve: Normal pulmonic valve appearance. There is trace to mild pulmonic regurgitation. Pericardium: Normal pericardium with no significant pericardial effusion. Aorta: Normal aortic root. IVC: Normal size and normal respiratory collapse consistent with normal right atrial pressure. Conclusions 1.Normal left ventricular systolic function. Normal left ventricular cavity size. Normal left ventricular wall thickness. Ejection fraction is visually estimated at 65 %. Tissue Doppler/Mitral Doppler indices are consistent with impaired relaxation (Stage I diastolic dysfunction). 2.Mild aortic valve regurgitation. 3.Estimated peak PA systolic pressure 30 mmHg based on RA pressure of 3 mmHg. Electronically Signed By: Bacilio Brand 08-Apr-2017 13:15:54 -0800 Patient Name: HANNA DINH Study Date: 07-Apr-2017 [id number]
== END 2017-04-08 15:15 | disposition home or self-care (01) | DRG 92 ==
LOC: E/R 09:45 → MS4 12:17
PROVIDERS: ADMIT Internal Medicine; ATTEND Internal Medicine
DX: R20.2 Paresthesia of skin (principal); I69.951 Hemiplegia and hemiparesis following unspecified cerebrovascular disease affecting right dominant side; M48.02 Spinal stenosis, cervical region; G31.84 Mild cognitive impairment of uncertain or unknown etiology; I10 Essential (primary) hypertension; E78.5 Hyperlipidemia, unspecified; F41.9 Anxiety disorder, unspecified; K21.9 Gastro-esophageal reflux disease without esophagitis; Z79.02 Long term (current) use of antithrombotics/antiplatelets; Z79.82 Long term (current) use of aspirin
CPT/HCPCS: 36415; 70450; 70546; 70549; 70553; 71010; 72141; 80048; 80061; 80307; 81003; 82550; 82553; 83036; 84484; 85025; 85610; 85730; 92610; 93005; 93306; 97163; 97530; J1650; J2405

== ENCOUNTER 2018-09-14 13:33 | Inpatient (IN) | payer MEDICARE, OTHER ==
[~2018-09-14] VITALS: Ht 160 cm; Wt 45.0 kg
[~2018-09-14 13:33] MED LIST changes: -AMLO2.5T2 PO; -ASPI-664 PO; +ASPI-817 PO; -ESOM40CA PO; -GABA100C14 PO; -IBUP400T22 PO; -MIRT30TA5 PO; -POLY17PO3 PO; -TRAM-40 PO; +TRAM50TA PO; -TRAM50TA2 PO
[2018-09-14] MEDS ORDERED: SOD CHLORIDE 0.9% 1,000 ML IV STA ×2 (13:47→15:10)
[2018-09-14] MEDS ORDERED: ONDANSETRON 4 MG INJ IV STA ×2 (13:47→15:10)
[2018-09-14] MEDS ORDERED: MECLIZINE 12.5 MG TAB PO ONE (14:00)
[2018-09-14] MEDS ORDERED: LORAZEPAM 2 MG INJ IV ONE (15:00)
[2018-09-14] MEDS ORDERED: IBUPROFEN 200 MG TAB PO ONE (15:30)
--- NOTE | 2018-09-14 15:41 | ERD ---
ER Documentation Chief Complaint Chief Complaint "Vertigo" w/associated dizziness, N/V since yesterday HPI This is an 87-year-old female with a known history of a cerebrovascular accident 4 years ago with residual weakness of the right upper and lower extremity. The patient was brought into the emergency department by her son after she complained of a sudden onset of dizziness for the past 24 hours. She describes the sensation as though the room is spinning around her. She is felt nauseous but denies any changes in vision. 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 When the symptoms happen she states she usually improves with Ativan and Zofran. The patient is denying a headache ROS All systems reviewed and are negative except as per history of present illness. Medications Home Meds Active Scripts Docusate Sodium* (Colace*) 100 Mg Cap, 100 MG PO Q12H for 30 Days Prov:QUINCY STEWARD 11/09/14 Clopidogrel Bisulfate (Clopidogrel) 75 Mg Tab, 75 MG PO DAILY for 30 Days Prov:QUINCY STEWARD 11/09/14 Reported Medications Cholecalciferol* (Vitamin D3*) 2,000 Unit Cap, 2000 UNIT PO DAILY, CAP 10/25/15 Alprazolam* (Alprazolam*) 0.5 Mg Tablet, 0.5 MG PO DAILY PRN for ANXIETY, TAB 10/25/15 Linaclotide (LINZESS) 290 Mcg Capsule, 290 MCG PO DAILY, #30 CAP 10/25/15 Aspirin* (Aspirin* EC) 81 Mg Tablet.dr, 81 MG PO DAILY, TAB 10/25/15 Tramadol Hcl* (Ultram*) 50 Mg Tablet, 50 MG PO DAILY PRN for PAIN, TAB 10/25/15 Metoclopramide* (Reglan*) 5 Mg Tablet, 5 MG PO AC MEALS, TAB 10/25/15 Atorvastatin Calcium* (Atorvastatin Calcium*) 20 Mg Tablet, 20 MG PO QHS, #30 TAB 10/25/15 Famotidine* (Pepcid*) 20 Mg Tablet, 20 MG PO DAILY, TAB 11/10/14 Allergies Allergies: Coded Allergies: No Known Allergy (Unverified , 04/06/17) PMhx/Soc History of Surgery: Yes (hysterectomy 10-15 years ago ) Anesthesia Reaction: No Hx Neurological Disorder: No Hx Respiratory Disorders: Yes (SOB upon exertion) Hx Cardiac Disorders: Yes (palpitations) Hx Psychiatric Problems: No Hx Miscellaneous Medical Probl: Yes (see eval) Hx Alcohol Use: No Hx Substance Use: No Hx Tobacco Use: No Smoking Status: Never smoker Physical Exam Vitals Vital Signs Date Temp Pulse Resp B/P (MAP) Pulse Ox O2 O2 Flow FiO2 Time Delivery Rate 09/14/18 97.1 80 18 155/75 98 13:45 (101) Physical Exam Constitutional:Well-developed. Well-nourished. HEENT:Normocephalic. Atraumatic.Pupils were equal round reactive to light. Dry mucous membranes.No tonsillar exudates. Neck: No nuchal rigidity. No lymphadenopathy. No posterior cervical spine tenderness or step-offs. Respiratory: Not using accessory muscles of respiration.Lungs were clear to auscultation bilaterally. No rhonchi. No rales. No wheezing. Cardiovascular: Regular rate regular rhythm.No murmurs. No rubs were a ppreciated.S1, S2 normal. Distal pulses are palpable 2+ bilaterally. GI: Abdomen was soft. Nontender. Non Distended. No pulsatile abdominal masses or bruits. No rebound. No guarding. Bowel sounds were present and normal. Muscle skeletal: Flaccid paralysis of the right lower extremity and flexion co ntraction of the right upper extremity and this is the patient's baseline. Full range of motion of the left upper and lower extremity. Skin: No petechia, no purpura. No lesions on the palms or the soles of the feet. No maculopapular rash. NEURO: Patient was alert, awake, orientated x3.No facial droop. Gait not observed as patient is unable to ambulate due to previous CV.Speech had regular rate and rhythm. No focal neurological deficits. Result Diagram: 09/14/18 1400 09/14/18 1400 Results 24 hrs Laboratory Tests Test 09/14/18 14:00 White Blood Count 8.7 10^3/ul Red Blood Count 4.25 10^6/ul Hemoglobin 13.6 g/dl Hematocrit 39.3 % Mean Corpuscular Volume 92.5 fl Mean Corpuscular Hemoglobin 32.0 pg Mean Corpuscular Hemoglobin Concent 34.6 g/dl Red Cell Distribution Width 13.0 % Platelet Count 221 10^3/UL Mean Platelet Volume 9.8 fl Immature Granulocytes % 0.300 % Neutrophils % 88.8 % Lymphocytes % 5.8 % Monocytes % 4.7 % Eosinophils % 0.1 % Basophils % 0.3 % Nucleated Red Blood Cells % 0.0 /100WBC Immature Granulocytes # 0.030 10^3/ul Neutrophils # 7.8 10^3/ul Lymphocytes # 0.5 10^3/ul Monocytes # 0.4 10^3/ul Eosinophils # 0.0 10^3/ul Basophils # 0.0 10^3/ul Nucleated Red Blood Cells # 0.0 10^3/ul Prothrombin Time 13.2 Sec Prothrombin Time Ratio 1.0 INR International Normalized Ratio 0.99 Activated Partial Thromboplast Time 26.4 Sec Sodium Level 128 mmol/L Potassium Level 3.9 mmol/L Chloride Level 91 mmol/L Carbon Dioxide Level 26 mmol/L Anion Gap 11 Blood Urea Nitrogen 10 mg/dl Creatinine 0.49 mg/dl Est Glomerular Filtrat Rate mL/min mL/min Glucose Level 115 mg/dl Calcium Level 9.7 mg/dl Total Bilirubin 0.6 mg/dl Direct Bilirubin 0.00 mg/dl Indirect Bilirubin 0.6 mg/dl Aspartate Amino Transf (AST/SGOT) 33 IU/L Alanine Aminotransferase (ALT/SGPT) 31 IU/L Alkaline Phosphatase 86 IU/L Troponin I < 0.012 ng/ml Total Protein 7.2 g/dl Albumin 4.5 g/dl Globulin 2.70 g/dl Albumin/Globulin Ratio 1.66 Current Medications Medications Dose Sig/Jose Manuel Start Time Status Last (Trade) Ordered Route PRN Stop Time Admin Dose Reason Admin Sodium 1,000 ml @ Q1H STAT 09/14/18 DC 09/14/18 Chloride 1,000 mls/hr IV 13:47 14:02 09/14/18 14:46 Ondansetron 4 mg ONCE STAT 09/14/18 DC 09/14/18 HCl (Zofran IV 13:47 14:02 Inj) 09/14/18 13:49 Meclizine 25 mg ONCE ONCE 09/14/18 DC 09/14/18 HCl PO 14:00 14:02 (Antivert) 4/28/19 14:01 Lorazepam 0.5 mg ONCE ONCE 09/14/18 DC 09/14/18 (Ativan) IV 15:00 15:13 09/14/18 15:01 Ibuprofen 400 mg ONCE ONCE 09/14/18 (Motrin) PO 15:30 09/14/18 15:31 Sodium 1,000 ml @ Q1H STAT 09/14/18 Chloride 1,000 mls/hr IV 15:10 09/14/18 16:09 Ondansetron 4 mg ONCE STAT 09/14/18 DC HCl (Zofran IV 15:10 Inj) 09/14/18 15:11 Procedures/MDM This patient was seen and evaluated by myself. The patient presented to the emergency department complaining of dizziness. My differential diagnosis included but was not limited to hypovolemia, myocardial infarction, pulmonary embolism, hypoglycemia, hypoxia, anemia, vasovagal episode, hypothyroidism, anxiety, peripheral or central vertigo. The patient was placed on a monitor worker, continuous pulse oximetry and IV access established by nursing staff. Patient was given IV fluids Zofran and Antivert. This did not improve her symptoms. At this time she was given 0.5 mg of Ativan intravenously but her symptoms did not improve. The patient had severe hyponatremia that I did feel could be exacerbating her symptoms. She received a liter bolus of normal saline but will be admitted to the hospital for correction of hyponatremia. The patient was also complaining of a mild frontal headache after receiving the Zofran and Antivert. Therefore I do feel is necessary to obtain a CT scan the patient's head. There is no intracerebral hemorrhage mass-effect or midline shift. She will be admitted to the hospitalist and I did feel was stable to go to the telemetry service. Departure Diagnosis: Primary Impression: Vertigo Additional Impression: Hyponatremia Condition: JERMAINE Lund MD Sep 14, 2018 15:33
[2018-09-14] MEDS ORDERED: ONDANSETRON 4 MG INJ IV PRN ×2 (17:30→18:00)
[2018-09-14] MEDS ORDERED: ACETAMINOPHEN 325 MG TAB PO PRN ×2 (17:30→18:00)
[2018-09-14] MEDS: SOD CHLORIDE 0.9% 1,000 ML IV SCH (17:38)
--- NOTE | 2018-09-14 17:56 | HP ---
Date/Time of Note Date/Time of Note DATE: 09/14/18 TIME: 17:56 Assessment/Plan VTE Prophylaxis Pharmacological prophylaxis: other Lines/Catheters IV Catheter Type (from Nrs): Saline Lock Assessment/Plan Hospital Course Patient is a [place] female the past medical history significant for CVA with residual right upper extremity right lower extremity weakness, BPPV, irritable bowel disease, GERD who has a past surgical history of hysterectomy who presents to [facility] for sudden onset headache associated with extreme dizziness with nausea vomiting. Patient does have BPPV that is treated with Zofran and Ativan at home. At this time patient states that she had sudden onset headache associated with increasing dizziness. Patient currently right now states that most of her symptoms have resolved however there is still some mild residual headache. Patient denies chest pain, shortness of breath, neck pain, vision changes, abdominal pain, bowel or bladder dysfunction or leg pain. Objective Physical exam General: Patient is laying in bed and answers questions appropriately Mentation: Patient is alert and oriented 4, Head: Normocephalic atraumatic Eyes: EOMI, pupils reactive to light Neck: Supple, nontender, midline Respiratory: Clear to auscultation bilaterally Cardiovascular: regular rate, no obvious murmurs Gastrointestinal: non-tender to palpation, bowel sounds heard. Neurological: Moves all extremities spontaneously, right upper and lower extremity is weaker than the left upper and lower extremity Skin: No new skin lesions Assessment and plan Sudden onset dizziness associated with headache -Possible that severe migraine or other headache caused worsening of patient's BPPV -Neurology consulted -CT scan done, no acute issues -MRI offered, patient and patient's family refused MRI, appears patient had a traumatic event with an MRI prior -Monitor overnight-sodium mildly low, replete Nausea vomiting -Likely associated with above -Monitor, treat as needed BPPV -Diagnosed, likely contributing to above sudden dizziness Irritable bowel syndrome -Nadeen is not on formulary, continue at home History of CVA with residual right-sided deficit -Chronic, no acute issues, continue aspirin and Plavix Disposition -IV fluid, monitoring, neurology consult, subsequent PT once neurology clears patient Result Diagram: 09/14/18 1400 09/14/18 1400 Results 24hrs Laboratory Tests Test 09/14/18 14:00 09/14/18 14:30 White Blood Count 8.7 # Red Blood Count 4.25 Hemoglobin 13.6 Hematocrit 39.3 Mean Corpuscular Volume 92.5 Mean Corpuscular Hemoglobin 32.0 Mean Corpuscular Hemoglobin Concent 34.6 Red Cell Distribution Width 13.0 Platelet Count 221 Mean Platelet Volume 9.8 Immature Granulocytes % 0.300 Neutrophils % 88.8 H Lymphocytes % 5.8 L Monocytes % 4.7 Eosinophils % 0.1 Basophils % 0.3 Nucleated Red Blood Cells % 0.0 Immature Granulocytes # 0.030 Neutrophils # 7.8 H Lymphocytes # 0.5 L Monocytes # 0.4 Eosinophils # 0.0 Basophils # 0.0 Nucleated Red Blood Cells # 0.0 Prothrombin Time 13.2 Prothrombin Time Ratio 1.0 INR International Normalized Ratio 0.99 Activated Partial Thromboplast Time 26.4 Sodium Level 128 L Potassium Level 3.9 Chloride Level 91 L Carbon Dioxide Level 26 Anion Gap 11 Blood Urea Nitrogen 10 Creatinine 0.49 Est Glomerular Filtrat Rate mL/min Glucose Level 115 Calcium Level 9.7 Total Bilirubin 0.6 Direct Bilirubin 0.00 Indirect Bilirubin 0.6 Aspartate Amino Transf (AST/SGOT) 33 Alanine Aminotransferase (ALT/SGPT) 31 Alkaline Phosphatase 86 Troponin I < 0.012 Total Protein 7.2 Albumin 4.5 Globulin 2.70 Albumin/Globulin Ratio 1.66 Urine Color STRAW Urine Clarity CLEAR Urine pH 8.0 Urine Specific [place] 1.008 Urine Ketones NEGATIVE Urine Nitrite NEGATIVE Urine Bilirubin NEGATIVE Urine Urobilinogen NEGATIVE Urine Leukocyte Esterase NEGATIVE Urine Hemoglobin NEGATIVE Urine Glucose NEGATIVE Urine Total Protein NEGATIVE HPI/ROS Admit Date/Time Admit Date/Time PMH/Family/Social Past Medical History Medications Current Medications Ondansetron HCl (Zofran Inj) 4 mg ER BRIDGE PRN IV NAUSEA/VOMITING; Start 09/14/18 at 17:30; Stop 09/15/18 at 17:29 Acetaminophen (Tylenol Tab) 650 mg ER BRIDGE PRN PO .MILD PAIN 1-3 OR TEMP; Start 09/14/18 at 17:30; Stop 09/15/18 at 17:29 Coded Allergies: No Known Allergy (Unverified , 04/06/17) Social History Smoking Status: Never smoker Exam/Review of Systems Vital Signs Vitals Vital Signs Date Temp Pulse Resp B/P (MAP) Pulse Ox O2 O2 Flow FiO2 Time Delivery Rate 09/14/18 97.1 80 18 155/75 98 13:45 (101) MICHELLE OMALLEY Sep 14, 2018 17:56
[2018-09-14] MEDS ORDERED: NACL 0.9% 3 ML SYG IV SCH (18:00)
[2018-09-14] MEDS ORDERED: traMADol 50 MG TAB PO PRN (18:00)
[2018-09-14 18:21] VITALS: PULSE 68
[2018-09-14] MEDS: DOCUSATE SODIUM 100 MG CAP PO SCH (18:41)
[2018-09-14 19:09] VITALS: Ht 160 cm; Wt 45.0 kg
[2018-09-14 19:10] VITALS: BP 164/24; PULSE 69; RESP 18
[2018-09-14 20:00] VITALS: BP 157/84; PULSE 73; PULSE 80; RESP 18
[2018-09-14] MEDS: ALPRAZOLAM 0.5 MG TAB PO PRN (21:03)
[2018-09-14] MEDS: ATORVASTATIN 20 MG TAB PO SCH (21:03)
[2018-09-15] VITALS (12 sets, daily range): BP systolic 116–152; BP diastolic 60–78; PULSE 56–90; RESP 16–20
[2018-09-15] MEDS: DOCUSATE SODIUM 100 MG CAP PO SCH ×2 (06:48→17:49)
[2018-09-15] MEDS: METOCLOPRAMIDE 5 MG TAB PO SCH ×3 (06:48→17:49)
[2018-09-15] MEDS ORDERED: POTASSIUM CHLORIDE (SR) 20 MEQ TAB PO STA (08:59)
[2018-09-15] MEDS: CHOLECALCIFEROL 2,000 UNIT CAP PO SCH (09:18)
[2018-09-15] MEDS: ASPIRIN (EC) 81 MG TAB PO SCH (09:18)
[2018-09-15] MEDS: FAMOTIDINE 20 MG TAB PO SCH (09:18)
[2018-09-15] MEDS: CLOPIDOGREL 75 MG TAB PO SCH (09:18)
--- NOTE | 2018-09-15 12:17 | CONS ---
Assessment/Plan Assessment/Plan Hospital Course 87 yo F with hx of CVA with R hemiparesis, BPPV and other comorbidities who presents for evaluation of sudden onset headache, dizziness and other sx... for which neurology is consulted. The clinical picture is most ominously concerning for a posterior circulation stroke. Complex migraines is a diagnosis of exclusion. 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 P: MRI with and without contrast for further characterization Ok to continue ASA/Lipitor for secondary stroke prevention Add lipid panel BP and other medical management per primary PT/OT as necessary Will follow clinically to recommend neurologic studies as necessary Consultation Date/Type/Reason Admit Date/Time Type of Consult Neurology Reason for Consultation sudden onset WOMACK with N/V/dizziness Requesting Provider: MICHELLE OMALLEY Date/Time of Note DATE: 09/15/18 TIME: 12:17 Hx of Present Illness 87 yo F with hx of CVA with residual R hemiparesis, BPPV and other comorbidities who presented to the ED with c/o headache, nausea/vomiting, and dizziness. History was obtained from son and chart review as the pt is a limited historian. The pt currently complains of a headache with associated dizziness. States that it is in the front of her head and of mild severity. The son states that it has been going on for two days and that her headache and dizziness have been constant and not necessarily associated with position changes or head turning, though position changes can make the dizziness worse. It is additionally elsewhere noted: Patient is a Yor[place] female the past medical history significant for CVA with residual right upper extremity right lower extremity weakness, BPPV, irritable bowel disease, GERD who has a past surgical history of hysterectomy who presents to [facility] for sudden onset headache associated with extreme dizziness with nausea vomiting. Patient does have BPPV that is treated with Zofran and Ativan at home. At this time patient states that she had sudden onset headache associated with increasing dizziness. Patient currently right now states that most of her symptoms have resolved however there is still some mild residual headache. Patient denies chest pain, shortness of breath, neck pain, vision changes, abdominal pain, bowel or bladder dysfunction or leg pain. negative unless noted otherwise in HPI Exam/Review of Systems Exam Vitals Vital Signs Date Temp Pulse Resp B/P (MAP) Pulse Ox O2 O2 Flow FiO2 Time Delivery Rate 09/15/18 98.5 61 20 124/60 95 11:50 (81) 09/15/18 Room Air 04:03 Intake and Output 09/14/18 09/14/18 09/15/18 1515:00 23:00 07:00 IntakeIntake Total 500 ml BalanceBalance 500 ml Exam PE: Gen Appearance: No Apparent Distress HEENT: Normocephalic Cardiovascular: Regular rate Lungs: Clear bilaterally Abdomen: Soft Extremities: Dry NE: The patient was alert and oriented. Language was normal. Fund of knowledge was adequate. Pupils were equal and reactive to light. There was no afferent pupillary defect. Visual wilde were normal. Funduscopic examination was limited. Extra-ocular movements were full. Ptosis was absent. There was no nystagmus. Facial sensation was normal. Face was symmetric with normal strength. Hearing was intact. Palate movements were normal. Neck strength was normal. There was normal tongue bulk and speed of movement. Tone was normal. Muscle bulk was normal. I did not see fasciculations. Arms and legs were plegic on the R. Vibration sensation was normal. Temperature and pinprick sensation was normal. Rapid alternating movements were normal. There was no dysmetria. There was no intention tremor. Gait was deferred due to bedrest. Arm and leg reflexes were 2+ and symmetric. Cano's sign was absent. Plantar responses were flexor. Results Result Diagram: 09/15/1831 09/15/18 0531 Results 24hrs Laboratory Tests Test 09/14/18 14:00 09/14/18 14:30 09/15/18 05:31 White Blood Count 8.7 # 6.0 # Red Blood Count 4.25 4.00 L Hemoglobin 13.6 12.8 Hematocrit 39.3 37.2 Mean Corpuscular Volume 92.5 93.0 Mean Corpuscular Hemoglobin 32.0 32.0 Mean Corpuscular Hemoglobin Concent 34.6 34.4 Red Cell Distribution Width 13.0 13.3 Platelet Count 221 201 Mean Platelet Volume 9.8 10.2 Immature Granulocytes % 0.300 0.500 H Neutrophils % 88.8 H 69.9 Lymphocytes % 5.8 L 18.3 Monocytes % 4.7 9.2 Eosinophils % 0.1 1.3 Basophils % 0.3 0.8 Nucleated Red Blood Cells % 0.0 0.0 Immature Granulocytes # 0.030 0.030 Neutrophils # 7.8 H 4.2 Lymphocytes # 0.5 L 1.1 Monocytes # 0.4 0.6 Eosinophils # 0.0 0.1 Basophils # 0.0 0.1 Nucleated Red Blood Cells # 0.0 0.0 Prothrombin Time 13.2 Prothrombin Time Ratio 1.0 INR International Normalized Ratio 0.99 Activated Partial Thromboplast Time 26.4 Sodium Level 128 L 134 L Potassium Level 3.9 3.4 L Chloride Level 91 L 99 Carbon Dioxide Level 26 26 Anion Gap 11 9 Blood Urea Nitrogen 10 8 Creatinine 0.49 0.55 Est Glomerular Filtrat Rate mL/min Glucose Level 115 87 Calcium Level 9.7 9.4 Total Bilirubin 0.6 0.8 Direct Bilirubin 0.00 0.00 Indirect Bilirubin 0.6 0.8 Aspartate Amino Transf (AST/SGOT) 33 24 Alanine Aminotransferase (ALT/SGPT) 31 25 Alkaline Phosphatase 86 59 Troponin I < 0.012 Total Protein 7.2 6.0 #L Albumin 4.5 3.7 Globulin 2.70 2.30 Albumin/Globulin Ratio 1.66 1.60 Urine Color STRAW Urine Clarity CLEAR Urine pH 8.0 Urine Specific [place] 1.008 Urine Ketones NEGATIVE Urine Nitrite NEGATIVE Urine Bilirubin NEGATIVE Urine Urobilinogen NEGATIVE Urine Leukocyte Esterase NEGATIVE Urine Hemoglobin NEGATIVE Urine Glucose NEGATIVE Urine Total Protein NEGATIVE Hemoglobin A1c 5.3 Magnesium Level 1.8 Medications Medication Current Medications Alprazolam (Xanax) 0.5 mg DAILY PRN PO ANXIETY Last administered on 09/14/18 21:03; Admin Dose 0.5 MG; Start 09/14/18 at 18:00 Aspirin (Halfprin) 81 mg DAILY PO Last administered on 09/15/18 09:18; Admin Dose 81 MG; Start 09/15/18 at 09:00 Atorvastatin Calcium (Lipitor) 20 mg QHS PO Last administered on 09/14/18 21:03; Admin Dose 20 MG; Start 09/14/18 at 21:00 Cholecalciferol (Vitamin D) 2,000 unit DAILY PO Last administered on 09/15/18 09:18; Admin Dose 2,000 UNIT; Start 09/15/18 at 09:00 Clopidogrel Bisulfate (plaVIX) 75 mg DAILY PO Last administered on 09/15/18 09:18; Admin Dose 75 MG; Start 09/15/18 at 09:00 Docusate Sodium (Colace) 100 mg Q12H PO Last administered on 09/15/18at 06:48; Admin Dose 100 MG; Start 09/14/18 at 18:00 Famotidine (Pepcid) 20 mg DAILY PO Last administered on 09/15/18at 09:18; Admin Dose 20 MG; Start 09/15/18 at 09:00 Metoclopramide HCl (Reglan) 5 mg AC MEALS PO Last administered on 09/15/18at 11:53; Admin Dose 5 MG; Start 09/15/18 at 07:00 Tramadol HCl (Ultram) 50 mg DAILY PRN PO PAIN Last administered on 09/15/18at 09:23; Admin Dose 50 MG; Start 09/14/18 at 18:00 Sodium Chloride 1,000 ml @ 40 mls/hr Q24H IV Last administered on 09/14/18at 17:38; Admin Dose 40 MLS/HR; Start 09/14/18 at 17:38; Stop 09/15/18 at 18:37 IV Flush (NS 3 ml) 3 ml PER PROTOCOL IV ; Start 09/14/18 at 18:00 Ondansetron HCl (Zofran Inj) 4 mg Q6H PRN IV NAUSEA/VOMITING; Start 09/14/18 at 18:00 Acetaminophen (Tylenol Tab) 650 mg Q6H PRN PO .PAIN 1-3 OR TEMP; Start 09/14/18 at 18:00 Past Medical History reviewed Home Meds Active Scripts Docusate Sodium* (Colace*) 100 Mg Cap, 100 MG PO Q12H for 30 Days Prov:QUINCY STEWARD 11/09/14 Clopidogrel Bisulfate (Clopidogrel) 75 Mg Tab, 75 MG PO DAILY for 30 Days Prov:QUINCY STEWARD 11/09/14 Reported Medications Cholecalciferol* (Vitamin D3*) 2,000 Unit Cap, 2000 UNIT PO DAILY, CAP 10/25/15 Alprazolam* (Alprazolam*) 0.5 Mg Tablet, 0.5 MG PO DAILY PRN for ANXIETY, TAB 10/25/15 Linaclotide (LINZESS) 290 Mcg Capsule, 290 MCG PO DAILY, #30 CAP 10/25/15 Aspirin* (Aspirin* EC) 81 Mg Tablet.dr, 81 MG PO DAILY, TAB 10/25/15 Tramadol Hcl* (Ultram*) 50 Mg Tablet, 50 MG PO DAILY PRN for PAIN, TAB 10/25/15 Metoclopramide* (Reglan*) 5 Mg Tablet, 5 MG PO AC MEALS, TAB 10/25/15 Atorvastatin Calcium* (Atorvastatin Calcium*) 20 Mg Tablet, 20 MG PO QHS, #30 TAB 10/25/15 Famotidine* (Pepcid*) 20 Mg Tablet, 20 MG PO DAILY, TAB 11/10/14 Medications Current Medications Alprazolam (Xanax) 0.5 mg DAILY PRN PO ANXIETY Last administered on 09/14/18 21:03; Admin Dose 0.5 MG; Start 09/14/18 at 18:00 Aspirin (Halfprin) 81 mg DAILY PO Last administered on 09/15/18 09:18; Admin Dose 81 MG; Start 09/15/18 at 09:00 Atorvastatin Calcium (Lipitor) 20 mg QHS PO Last administered on 09/14/18 21:03; Admin Dose 20 MG; Start 09/14/18 at 21:00 Cholecalciferol (Vitamin D) 2,000 unit DAILY PO Last administered on 09/15/18 09:18; Admin Dose 2,000 UNIT; Start 09/15/18 at 09:00 Clopidogrel Bisulfate (plaVIX) 75 mg DAILY PO Last administered on 09/15/18 09:18; Admin Dose 75 MG; Start 09/15/18 at 09:00 Docusate Sodium (Colace) 100 mg Q12H PO Last administered on 09/15/18 06:48; Admin Dose 100 MG; Start 09/14/18 at 18:00 Famotidine (Pepcid) 20 mg DAILY PO Last administered on 09/15/18 09:18; Admin Dose 20 MG; Start 09/15/18 at 09:00 Metoclopramide HCl (Reglan) 5 mg AC MEALS PO Last administered on 09/15/18 11:53; Admin Dose 5 MG; Start 09/15/18 at 07:00 Tramadol HCl (Ultram) 50 mg DAILY PRN PO PAIN Last administered on 09/15/18 09:23; Admin Dose 50 MG; Start 09/14/18 at 18:00 Sodium Chloride 1,000 ml @ 40 mls/hr Q24H IV Last administered on 09/14/18at 17:38; Admin Dose 40 MLS/HR; Start 09/14/18 at 17:38; Stop 09/15/18 at 18:37 IV Flush (NS 3 ml) 3 ml PER PROTOCOL IV ; Start 09/14/18 at 18:00 Ondansetron HCl (Zofran Inj) 4 mg Q6H PRN IV NAUSEA/VOMITING; Start 09/14/18 at 18:00 Acetaminophen (Tylenol Tab) 650 mg Q6H PRN PO .PAIN 1-3 OR TEMP; Start 09/14/18 at 18:00 Allergies: Coded Allergies: No Known Allergy (Unverified , 04/06/17) Past Surgical History reviewed Social History reviewed Smoking Status: Never smoker JESENIA CAVAZOS NP Sep 15, 2018 12:17 LESLIE MORRISSEY Sep 15, 2018 19:49
--- NOTE | 2018-09-15 13:27 | RADRPT ---
Echocardiogram Report Patient Name: HANNA DINHPatient ID: [id number] : 1930 (87y 11m)Study Date: 09/15/2018 11:06:43 AM Gender: FAccession #: [id number] Tech: Hans Patel [facility] Location: [facility] Ref.Physician: MICHELLE OMALLEY Height(Cm): BSA: Weight(Kg): Quality: AdequateAccount #: Procedures: Echocardiographic Report: Transthoracic echocardiogram with complete 2D, M-Mode, and doppler examination. Indications: Dizziness. Measurements: 2D/M Mode Doppler Measurement Value Normal Range Measurement Value Normal Range LVIDd 2D 3.5 [ 3.8 - 5.2 ] cm AV Peak Vincent 102.0 [ 100.0 - 170.0 ] cm/sec LVIDs 2D 1.9 [ 2.2 - 3.5 ] cm AV Peak PG 4.0 [ 2.0 - 9.0 ] mmHg LVPWd 2D 1.1 [ 0.6 - 0.9 ] cm LVOT Peak Vincent 67.9 [ 70.0 - 110.0 ] cm/sec IVSd 2D 1.1 [ 0.6 - 0.9 ] cm LVOT Peak PG 2.0 [ 2.0 - 6.0 ] mmHg AoR Diam 2D 2.5 [ 2.3 - 3.1 ] cm MV E Peak Vincent 43.2 [ 60.0 - 130.0 ] cm/sec LA Dimen 2D 2.7 [ 2.7 - 3.8 ] cm MV E Peak PG 1.0 mmHg MV A Peak Vincent 66.9 [ 100.0 - 120.0 ] cm/sec MV A Peak PG 2.0 mmHg MV E/A 0.6 [ 0.8 - 1.5 ] ratio MV Decel Time 197 [ 104 - 258 ] msec Lat E` Vincent 5.3 [ 10.0 - 15.0 ] cm/sec Lateral E/E` 8.1 [ 1.0 - 2.0 ] ratio TR Peak Vincent 233.0 [ 100.0 - 280.0 ] cm/sec TR Peak PG 22.0 mmHg RVSP 30.0 [ 10.0 - 36.0 ] mmHg RA Pressure 8.0 mmHg Findings: Left Ventricle: Normal left ventricular systolic function. Normal left ventricular cavity size. Sigmoid septum. Ejection fraction is visually estimated at 60 %. Tissue Doppler/Mitral Doppler indices are consistent with impaired relaxation (Stage I diastolic dysfunction). Right Ventricle: Normal right ventricular size. Normal right ventricular systolic function. Left Atrium: There is mild enlargement of left atrium. Right Atrium: The right atrium is normal in size. Mitral Valve: Normal appearance and function of the mitral valve with trace physiologic regurgitation. Aortic Valve: Aortic sclerosis without significant stenosis. Mild aortic valve regurgitation. Tricuspid Valve: Normal appearance of the tricuspid valve. Estimated peak PA systolic pressure 25 mmHg. There is trace tricuspid regurgitation. Pulmonic Valve: Normal pulmonic valve appearance. Pericardium: Normal pericardium with no significant pericardial effusion. Aorta: Normal aortic root. IVC: Normal size and normal respiratory collapse consistent with normal right atrial pressure. Conclusions: Normal left ventricular systolic function. Normal left ventricular cavity size. Sigmoid septum. Ejection fraction is visually estimated at 60 %. Tissue Doppler/Mitral Doppler indices are consistent with impaired relaxation (Stage I diastolic dysfunction). Aortic sclerosis without significant stenosis. Mild aortic valve regurgitation. Estimated peak PA systolic pressure 25 mmHg. Normal size and normal respiratory collapse consistent with normal right atrial pressure. Electronically Signed By: Bacilio Brand 2018-09-15 13:27:12 PDT
--- NOTE | 2018-09-15 14:53 | PN ---
Date/Time of Note Date/Time of Note DATE: 09/15/18 TIME: 14:43 Assessment/Plan VTE Prophylaxis Risk score (from [facility])>0 risk: 4 SCD applied (from [facility]): No SCD contraindicated: patient refusal Pharmacological prophylaxis: NA/contraindicated Pharm contraindication: low risk/ambulating Lines/Catheters IV Catheter Type (from [facility]): Peripheral IV Urinary Cath still in place: No Assessment/Plan Assessment/Plan 1. Headache with dizziness - Neurology consultation appreciated. Concern for posterior stroke. Requesting MRI but family refused due to past traumatic experience - CT scan results noted with chronic findings. no acute abnormalities 2. BPPV, chronic - exacerbating sudden dizziness - Meclizine PRN 3. Irritable bowel syndrome - Nadeen is not on formulary, continue after discharge 4. History of CVA with residual right-sided deficit - continue aspirin and Plavix 5. hyponatremia - resolving 6. Hypokalemia - replaced 7. Disposition - Monitor for improvement in dizziness and normalization of electrolytes Result Diagram: 09/15/1853009/15/18 0531 Results 24hrs Laboratory Tests Test 09/15/18 05:31 White Blood Count 6.0 # Red Blood Count 4.00 L Hemoglobin 12.8 Hematocrit 37.2 Mean Corpuscular Volume 93.0 Mean Corpuscular Hemoglobin 32.0 Mean Corpuscular Hemoglobin Concent 34.4 Red Cell Distribution Width 13.3 Platelet Count 201 Mean Platelet Volume 10.2 Immature Granulocytes % 0.500 H Neutrophils % 69.9 Lymphocytes % 18.3 Monocytes % 9.2 Eosinophils % 1.3 Basophils % 0.8 Nucleated Red Blood Cells % 0.0 Immature Granulocytes # 0.030 Neutrophils # 4.2 Lymphocytes # 1.1 Monocytes # 0.6 Eosinophils # 0.1 Basophils # 0.1 Nucleated Red Blood Cells # 0.0 Sodium Level 134 L Potassium Level 3.4 L Chloride Level 99 Carbon Dioxide Level 26 Anion Gap 9 Blood Urea Nitrogen 8 Creatinine 0.55 Est Glomerular Filtrat Rate mL/min Glucose Level 87 Hemoglobin A1c 5.3 Calcium Level 9.4 Magnesium Level 1.8 Total Bilirubin 0.8 Direct Bilirubin 0.00 Indirect Bilirubin 0.8 Aspartate Amino Transf (AST/SGOT) 24 Alanine Aminotransferase (ALT/SGPT) 25 Alkaline Phosphatase 59 Total Protein 6.0 #L Albumin 3.7 Globulin 2.30 Albumin/Globulin Ratio 1.60 Triglycerides Level 43 Cholesterol Level 125 LDL Cholesterol, Calculated 53 HDL Cholesterol 63 Cholesterol/HDL Ratio 1.9 Subjective 24 Hr Interval Summary Free Text/Dictation Patient still complaining of headache and dizziness. also complaining of weakness of lower extremities. Denies any nausea, chest pain, shortness of breath, or abdominal issues. Exam/Review of Systems Exam Vitals Vital Signs Date Temp Pulse Resp B/P (MAP) Pulse Ox O2 O2 Flow FiO2 Time Delivery Rate 09/15/18 65 12:01 09/15/18 98.5 20 124/60 95 11:50 (81) 09/15/18 Room Air 04:03 Intake and Output 09/14/18 09/14/18 09/15/18 1515:00 23:00 07:00 IntakeIntake Total 500 ml BalanceBalance 500 ml Exam General: No acute distress. answering questions appropriately Eyes: EOMI, pupils reactive to light Neck: Supple, nontender, midline Respiratory: Clear to auscultation bilaterally. no wheezing or rhonchi Cardiovascular: regular rate and rhythm, no obvious murmurs Gastrointestinal: soft, non-tender to palpation, nondistended, bowel sounds heard. Neurological: Moves all extremities spontaneously, 3/5 RUE and RLE, 4/5 LUE and LLE Skin: No new skin lesions Results Results 24hrs Laboratory Tests Test 09/15/18 05:31 White Blood Count 6.0 # Red Blood Count 4.00 L Hemoglobin 12.8 Hematocrit 37.2 Mean Corpuscular Volume 93.0 Mean Corpuscular Hemoglobin 32.0 Mean Corpuscular Hemoglobin Concent 34.4 Red Cell Distribution Width 13.3 Platelet Count 201 Mean Platelet Volume 10.2 Immature Granulocytes % 0.500 H Neutrophils % 69.9 Lymphocytes % 18.3 Monocytes % 9.2 Eosinophils % 1.3 Basophils % 0.8 Nucleated Red Blood Cells % 0.0 Immature Granulocytes # 0.030 Neutrophils # 4.2 Lymphocytes # 1.1 Monocytes # 0.6 Eosinophils # 0.1 Basophils # 0.1 Nucleated Red Blood Cells # 0.0 Sodium Level 134 L Potassium Level 3.4 L Chloride Level 99 Carbon Dioxide Level 26 Anion Gap 9 Blood Urea Nitrogen 8 Creatinine 0.55 Est Glomerular Filtrat Rate mL/min Glucose Level 87 Hemoglobin A1c 5.3 Calcium Level 9.4 Magnesium Level 1.8 Total Bilirubin 0.8 Direct Bilirubin 0.00 Indirect Bilirubin 0.8 Aspartate Amino Transf (AST/SGOT) 24 Alanine Aminotransferase (ALT/SGPT) 25 Alkaline Phosphatase 59 Total Protein 6.0 #L Albumin 3.7 Globulin 2.30 Albumin/Globulin Ratio 1.60 Triglycerides Level 43 Cholesterol Level 125 LDL Cholesterol, Calculated 53 HDL Cholesterol 63 Cholesterol/HDL Ratio 1.9 Medications Medication Current Medications Alprazolam (Xanax) 0.5 mg DAILY PRN PO ANXIETY Last administered on 09/14/18 21:03; Admin Dose 0.5 MG; Start 09/14/18 at 18:00 Aspirin (Halfprin) 81 mg DAILY PO Last administered on 09/15/18 09:18; Admin Dose 81 MG; Start 09/15/18 at 09:00 Atorvastatin Calcium (Lipitor) 20 mg QHS PO Last administered on 09/14/18 21:03; Admin Dose 20 MG; Start 09/14/18 at 21:00 Cholecalciferol (Vitamin D) 2,000 unit DAILY PO Last administered on 09/15/18 09:18; Admin Dose 2,000 UNIT; Start 09/15/18 at 09:00 Clopidogrel Bisulfate (plaVIX) 75 mg DAILY PO Last administered on 09/15/18 09:18; Admin Dose 75 MG; Start 09/15/18 at 09:00 Docusate Sodium (Colace) 100 mg Q12H PO Last administered on 09/15/18 06:48; Admin Dose 100 MG; Start 09/14/18 at 18:00 Famotidine (Pepcid) 20 mg DAILY PO Last administered on 09/15/18 09:18; Admin Dose 20 MG; Start 09/15/18 at 09:00 Metoclopramide HCl (Reglan) 5 mg AC MEALS PO Last administered on 09/15/18 11:53; Admin Dose 5 MG; Start 09/15/18 at 07:00 Tramadol HCl (Ultram) 50 mg DAILY PRN PO PAIN Last administered on 09/15/18 09:23; Admin Dose 50 MG; Start 09/14/18 at 18:00 Sodium Chloride 1,000 ml @ 40 mls/hr Q24H IV Last administered on 09/14/18 17:38; Admin Dose 40 MLS/HR; Start 09/14/18 at 17:38; Stop 09/15/18 at 18:37 IV Flush (NS 3 ml) 3 ml PER PROTOCOL IV ; Start 09/14/18 at 18:00 Ondansetron HCl (Zofran Inj) 4 mg Q6H PRN IV NAUSEA/VOMITING; Start 09/14/18 at 18:00 Acetaminophen (Tylenol Tab) 650 mg Q6H PRN PO .PAIN 1-3 OR TEMP; Start 09/14/18 at 18:00 ANGEL CABAN MD Sep 15, 2018 14:53
[2018-09-15] MEDS ORDERED: MECLIZINE 12.5 MG TAB PO PRN (15:00)
[2018-09-15] MEDS: SOD CHLORIDE 0.9% 1,000 ML IV SCH (18:31)
[2018-09-15] MEDS: ATORVASTATIN 20 MG TAB PO SCH (20:46)
[2018-09-15] MEDS: ALPRAZOLAM 0.5 MG TAB PO PRN (20:46)
[2018-09-16] VITALS (8 sets, daily range): BP systolic 126–162; BP diastolic 59–91; PULSE 60–91; RESP 19–20
[2018-09-16] MEDS: CHOLECALCIFEROL 2,000 UNIT CAP PO SCH (08:42)
[2018-09-16] MEDS: FAMOTIDINE 20 MG TAB PO SCH (08:42)
[2018-09-16] MEDS: METOCLOPRAMIDE 5 MG TAB PO SCH ×3 (08:42→17:30)
[2018-09-16] MEDS: ASPIRIN (EC) 81 MG TAB PO SCH (08:42)
[2018-09-16] MEDS: DOCUSATE SODIUM 100 MG CAP PO SCH ×2 (08:42→17:33)
[2018-09-16] MEDS: CLOPIDOGREL 75 MG TAB PO SCH (08:42)
[2018-09-16] MEDS ORDERED: LIDOCAINE 5% PATCH TD SCH (10:00)
--- NOTE | 2018-09-16 10:54 | PN ---
Date/Time of Note Date/Time of Note DATE: 09/16/18 TIME: 10:54 Assessment/Plan VTE Prophylaxis Risk score (from Ns)>0 risk: 4 SCD applied (from Ns): Yes Pharmacological prophylaxis: heparin Lines/Catheters IV Catheter Type (from Nrsg): Peripheral IV Urinary Cath still in place: No Assessment/Plan Assessment/Plan 1. Headache with dizziness - Neurology consultation appreciated. Concern for posterior stroke. Requesting MRI but family refused due to past traumatic experience - CT scan results noted with chronic findings. no acute abnormalities 2. BPPV, chronic - exacerbating sudden dizziness - Meclizine PRN 3. Irritable bowel syndrome - Nadeen is not on formulary, continue after discharge 4. History of CVA with residual right-sided deficit - continue aspirin and Plavix 5. hyponatremia- resolved 6. Hypokalemia - stable 7. Disposition - Monitor for improvement in dizziness. Once back to baseline will d/c home with HHPT Result Diagram: 09/15/18 0531 09/16/18 0538 Results 24hrs Laboratory Tests Test 09/16/18 05:38 Sodium Level 135 Potassium Level 3.7 Chloride Level 102 Carbon Dioxide Level 26 Anion Gap 7 Blood Urea Nitrogen 10 Creatinine 0.48 Glucose Level 92 Calcium Level 9.8 Phosphorus Level 3.3 Magnesium Level 1.9 Albumin 3.6 Subjective 24 Hr Interval Summary Free Text/Dictation Patient is complaining of left lower back pain. No acute overnight events. Exam/Review of Systems Exam Vitals Vital Signs Date Temp Pulse Resp B/P (MAP) Pulse Ox O2 O2 Flow FiO2 Time Delivery Rate 09/16/18 91 08:01 09/16/18 98.5 20 138/75 96 07:08 (96) 09/15/18 Room Air 04:03 Intake and Output 09/15/18 09/15/18 09/16/18 1515:00 23:00 07:00 IntakeIntake Total 520 ml 600 ml BalanceBalance 520 ml 600 ml Exam General: Mild distress secondary to pain. answering questions appropriately Respiratory: Clear to auscultation bilaterally. no wheezing or rhonchi Cardiovascular: regular rate and rhythm, no obvious murmurs Gastrointestinal: soft, non-tender to palpation, nondistended, bowel sounds heard. Neurological: Moves all extremities spontaneously, 3/5 RUE and RLE, 4/5 LUE and LLE Skin: No new skin lesions Results Results 24hrs Laboratory Tests Test 09/16/18 05:38 Sodium Level 135 Potassium Level 3.7 Chloride Level 102 Carbon Dioxide Level 26 Anion Gap 7 Blood Urea Nitrogen 10 Creatinine 0.48 Glucose Level 92 Calcium Level 9.8 Phosphorus Level 3.3 Magnesium Level 1.9 Albumin 3.6 Medications Medication Current Medications Alprazolam (Xanax) 0.5 mg DAILY PRN PO ANXIETY Last administered on 09/15/18 20:46; Admin Dose 0.5 MG; Start 09/14/18 at 18:00 Aspirin (Halfprin) 81 mg DAILY PO Last administered on 09/16/18 08:42; Admin Dose 81 MG; Start 09/15/18 at 09:00 Atorvastatin Calcium (Lipitor) 20 mg QHS PO Last administered on 09/15/18 20:46; Admin Dose 20 MG; Start 09/14/18 at 21:00 Cholecalciferol (Vitamin D) 2,000 unit DAILY PO Last administered on 09/16/18 08:42; Admin Dose 2,000 UNIT; Start 09/15/18 at 09:00 Clopidogrel Bisulfate (plaVIX) 75 mg DAILY PO Last administered on 09/16/18 08:42; Admin Dose 75 MG; Start 09/15/18 at 09:00 Docusate Sodium (Colace) 100 mg Q12H PO Last administered on 09/16/18 08:42; Admin Dose 100 MG; Start 09/14/18 at 18:00 Famotidine (Pepcid) 20 mg DAILY PO Last administered on 09/16/18 08:42; Admin Dose 20 MG; Start 09/15/18 at 09:00 Metoclopramide HCl (Reglan) 5 mg AC MEALS PO Last administered on 09/16/18 08:42; Admin Dose 5 MG; Start 09/15/18 at 07:00 Tramadol HCl (Ultram) 50 mg DAILY PRN PO PAIN Last administered on 09/15/18 09:23; Admin Dose 50 MG; Start 09/14/18 at 18:00 IV Flush (NS 3 ml) 3 ml PER PROTOCOL IV ; Start 09/14/18 at 18:00 Ondansetron HCl (Zofran Inj) 4 mg Q6H PRN IV NAUSEA/VOMITING; Start 09/14/18 at 18:00 Acetaminophen (Tylenol Tab) 650 mg Q6H PRN PO .PAIN 1-3 OR TEMP; Start 09/14/18 at 18:00 Meclizine HCl (Antivert) 12.5 mg TID PRN PO dizziness Last administered on 09/15/18at 18:30; Admin Dose 12.5 MG; Start 09/15/18 at 15:00 Lidocaine (Lidoderm) 1 patch DAILY TD ; Start 09/16/18 at 10:00 ANGEL CABAN MD Sep 16, 2018 10:54
--- NOTE | 2018-09-16 12:14 | CONS ---
Assessment/Plan Assessment/Plan Hospital Course 87 yo F with hx of CVA with R hemiparesis, BPPV and other comorbidities who presents for evaluation of sudden onset headache, dizziness and other sx... for which neurology is consulted. The clinical picture is most ominously concerning for a posterior circulation stroke. Complex migraine is a diagnosis of exclusion. 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 Patient is refusing MRI brain.. P: OK to continue ASA for secondary stroke prevention; LDL is at goal BP and other medical management per primary PT/OT as necessary Will follow clinically Consultation Date/Type/Reason Admit Date/Time Sep 14, 2018 at 17:07 Type of Consult Neurology Reason for Consultation sudden onset WOMACK with N/V/dizziness Requesting Provider: MICHELLE OMALLEY Date/Time of Note DATE: 09/16/18 TIME: 12:14 24 HR Interval Summary Free Text/Dictation Continues acute care. Pt refused MRI. Still has c/o dizziness today; denies headache. Exam Vital Signs Vitals Vital Signs Date Temp Pulse Resp B/P (MAP) Pulse Ox O2 O2 Flow FiO2 Time Delivery Rate 09/16/18 98.6 69 20 156/70 97 11:17 (98) 09/15/18 Room Air 04:03 Intake and Output 09/15/18 09/15/18 09/16/18 1515:00 23:00 07:00 IntakeIntake Total 520 ml 600 ml BalanceBalance 520 ml 600 ml Exam PE: Gen Appearance: No Apparent Distress HEENT: Normocephalic Cardiovascular: Regular rate Lungs: Clear bilaterally Abdomen: Soft Extremities: Dry NE: The patient was alert and oriented. Language was normal. Fund of knowledge was adequate. Pupils were equal and reactive to light. There was no afferent pupillary defect. Visual wilde were normal. Funduscopic examination was limited. Extra-ocular movements were full. Ptosis was absent. There was no nystagmus. Facial sensation was normal. Face was symmetric with normal strength. Hearing was intact. Palate movements were normal. Neck strength was normal. There was normal tongue bulk an d speed of movement. Tone was normal. Muscle bulk was normal. I did not see fasciculations. Arms and legs were plegic on the R. Vibration sensation was normal. Temperature and pinprick sensation was normal. Rapid alternating movements were normal. There was no dysmetria. There was no intention tremor. Gait was deferred due to bedrest. Arm and leg reflexes were 2+ and symmetric. Cano's sign was absent. Plantar responses were flexor. JESENIA CAVAZOS NP Sep 16, 2018 12:14 LESLIE MORRISSEY Sep 16, 2018 19:16
[2018-09-16] MEDS ORDERED: MECL12.574 PO (15:55)
--- NOTE | 2018-09-16 15:58 | PDOCDIS ---
Discharge Instructions DIAGNOSIS Discharge Diagnosis 1. Headache with dizziness 2. BPPV, chronic 3. Irritable bowel syndrome 4. History of CVA with residual right-sided deficit CONDITION [id number] Patient Condition: [id number] Stable HOME CARE INSTRUCTIONS: [id number] Diet Instructions: [id number] Low Fat /Cholesterol FOLLOW UP/APPOINTMENTS Follow-up Plan 1. Follow up with primary care physician in 1-2 weeks 2. Take Meclizine up to three time a day for dizziness 3. Take all other medications as prescribed 4. Home health and physical therapy was arranged to come to your home 5. If experiencing any concerning symptoms, please come back to the emergency department ANGEL CABAN MD Sep 16, 2018 15:58
--- NOTE | 2018-09-16 16:33 | DS ---
Date/Time of Note Date/Time of Note DATE: 09/16/18 TIME: 16:31 Discharge Summary Admission/Discharge Info Admit Date/Time Sep 14, 2018 at 17:07 Discharge Date/Time 09/16/18 Discharge Diagnosis 1. Headache with dizziness 2. BPPV, chronic 3. Irritable bowel syndrome 4. History of CVA with residual right-sided deficit Patient Condition: Stable Consults Neurology- Dr. Bagley Hx of Present Illness Patient is a [place] female the past medical history significant for CVA with residual right upper extremity right lower extremity weakness, BPPV, irritable bowel disease, GERD who has a past surgical history of hysterectomy who presents to [facility] for sudden onset headache associated with extreme dizziness with nausea vomiting. Patient does have BPPV that is treated with Zofran and Ativan at home. At this time patient states that she had sudden onset headache associated with increasing dizziness. Patient currently right no w states that most of her symptoms have resolved however there is still some mild residual headache. Patient denies chest pain, shortness of breath, neck pain, vision changes, abdominal pain, bowel or bladder dysfunction or leg pain. Hospital Course Patient was admitted for workup of dizziness with headache. Neurology was consulted and recommendations for MRI were made to rule out posterior stroke. Patient refused imaging studies given past traumatic experience. Patient was started on antivert PRN which helped with her symptoms. Her dizziness improved and she tolerated physical therapy session. Patient requested to be discharge since was at baseline and son was agreeable to taking her home. Home health services with physical therapy were arranged and patient was discharged home in stable condition. Home Meds Active Scripts Meclizine Hcl* (Antivert*) 12.5 Mg Tab, 12.5 MG PO TID PRN for dizziness for 30 Days, #90 TAB 1 Refill Prov:ANGEL CABAN MD 09/16/18 Docusate Sodium* (Colace*) 100 Mg Cap, 100 MG PO Q12H for 30 Days Prov:QUINCY STEWARD 11/09/14 Clopidogrel Bisulfate (Clopidogrel) 75 Mg Tab, 75 MG PO DAILY for 30 Days Prov:QUINCY STEWARD 11/09/14 Reported Medications Cholecalciferol* (Vitamin D3*) 2,000 Unit Cap, 2000 UNIT PO DAILY, CAP 10/25/15 Alprazolam* (Alprazolam*) 0.5 Mg Tablet, 0.5 MG PO DAILY PRN for ANXIETY, TAB 10/25/15 Linaclotide (LINZESS) 290 Mcg Capsule, 290 MCG PO DAILY, #30 CAP 10/25/15 Aspirin* (Aspirin* EC) 81 Mg Tablet.dr, 81 MG PO DAILY, TAB 10/25/15 Tramadol Hcl* (Ultram*) 50 Mg Tablet, 50 MG PO DAILY PRN for PAIN, TAB 10/25/15 Metoclopramide* (Reglan*) 5 Mg Tablet, 5 MG PO AC MEALS, TAB 10/25/15 Atorvastatin Calcium* (Atorvastatin Calcium*) 20 Mg Tablet, 20 MG PO QHS, #30 TAB 10/25/15 Famotidine* (Pepcid*) 20 Mg Tablet, 20 MG PO DAILY, TAB 11/10/14 Follow-up Plan 1. Follow up with primary care physician in 1-2 weeks 2. Take Meclizine up to three time a day for dizziness 3. Take all other medications as prescribed 4. Home health and physical therapy was arranged to come to your home 5. If experiencing any concerning symptoms, please come back to the emergency department Primary Care Provider Not On Staff Doctor Time spent on discharge: > 30 minutes Pending Labs Laboratory Tests Test 09/16/18 05:38 Sodium Level 135 mmol/L (135-144) Potassium Level 3.7 mmol/L (3.5-5.1) Chloride Level 102 mmol/L (97-110) Carbon Dioxide Level 26 mmol/L (21-31) Anion Gap 7 (5-13) Blood Urea Nitrogen 10 mg/dl (7-20) Creatinine 0.48 mg/dl (0.44-1.00) Glucose Level 92 mg/dl (70-220) Calcium Level 9.8 mg/dl (8.4-10.2) Phosphorus Level 3.3 mg/dl (2.5-4.9) Magnesium Level 1.9 mg/dl (1.7-2.5) Albumin 3.6 g/dl (3.3-4.9) ANGEL CABAN MD Sep 16, 2018 16:33
== END 2018-09-16 18:18 | disposition home health service (06) | DRG 103 ==
LOC: E/R 13:33 → 6WM 17:07 → SUATTDRO 17:33 → 6WM 09-16 03:32
PROVIDERS: ADMIT Internal Medicine; ATTEND Internal Medicine
DX: R51 Headache (principal); E87.1 Hypo-osmolality and hyponatremia; I69.851 Hemiplegia and hemiparesis following other cerebrovascular disease affecting right dominant side; R42 Dizziness and giddiness; E87.6 Hypokalemia; Z79.82 Long term (current) use of aspirin; Z90.710 Acquired absence of both cervix and uterus
CPT/HCPCS: 70450; 80053; 80061; 80069; 81003; 83036; 83735; 84484; 85025; 85610; 85730; 87086; 93005; 93306; 96374; 96375; 96376; 97161; 97167; J2060; J2405; J7030